=== PATIENT | male | born 1930 | race Caucasian/White ===

== ENCOUNTER → 2016-08-09 | Outpatient (CLI) | payer MEDICARE ==
[2016-08-09 08:26] LABS: CH 32.5; CHCM 32.8; HDW 2.54; HGB 15.2 gm/dL (13.0-17.5); MCH 32.1 pg (25.0-35.0); MCHC 32.2 g/dL (31.0-37.0); MCV 99.6 fL (80.0-100.0); Macrocytosis Slight; Mean Platelet Volume 7.3; RBC 4.72 m/uL (4.30-5.90); RDW 14.7 % (11.5-15.5); WBC 7.9 k/uL (3.8-10.6)
--- NOTE | 2016-08-09 08:29 | XR ---
EXAMINATION TYPE: XR chest 2V DATE OF EXAM: 08/09/2016 COMPARISON: NONE INDICATION: Physical TECHNIQUE: Frontal and lateral views of the chest are obtained. FINDINGS: The heart size is normal. The pulmonary vasculature is normal. The lungs are clear. Spondylosis within the mid to lower thoracic spine. Some degenerative disc fuentes ges present in the lower thoracic spine. Surgical repair of the right shoulder is evident. IMPRESSION: 1. No acute pulmonary process.
[2016-08-09 08:31] LABS: ALT 37 U/L (21-72); AST 28 U/L (17-59); Alkaline Phosphatase 51 U/L (38-126); Anion Gap 7 mmol/L; Blood Urea Nitrogen 18 mg/dL (9-20); Calcium 9.3 mg/dL (8.4-10.2); Carbon Dioxide 26 mmol/L (22-30); Chloride 109 mmol/L (98-107); Cholesterol 194 mg/dL (<200); Glucose 96 mg/dL (74-99); Non-African American GFR(MDRD) >60 (>60 ml/min/1.73 sqM); Potassium 4.5 mmol/L (3.5-5.1); Sodium 142 mmol/L (137-145); Total Bilirubin 0.8 mg/dL (0.2-1.3); Total Protein 6.7 g/dL (6.3-8.2); Triglycerides 64 mg/dL (<150)
[2016-08-09 08:40] LABS: Appearance,Urine Clear (Clear); Bilirubin,Urine Negative (Negative); Glucose,Urine (UA) Negative (Negative); Ketones,Urine Negative (Negative); Leukocyte Esterase,Urine Trace (Negative); Mucus,Urine Moderate /hpf; Nitrite,Urine Negative (Negative); PH, Urine 5.5 (5.0-8.0); Particle Count 5229; Protein,Urine Negative (Negative); Specific Gravity,Urine 1.014 (1.001-1.035); UA Billing (MACRO vs. MICRO) MICRO; Urobilinogen,Urine <2.0 mg/dL (<2.0); WBC,Urine 2 /hpf (0-5)
[2016-08-09 10:50] LABS: HDL Cholesterol 59 mg/dL (40-60)
== END | disposition home or self-care (01) ==
LOC: LABWHC1 07:40
PROVIDERS: ATTEND Internal Medicine
DX: I11.9 Hypertensive heart disease without heart failure (principal); M19.90 Unspecified osteoarthritis, unspecified site; K21.0 Gastro-esophageal reflux disease with esophagitis; R53.82 Chronic fatigue, unspecified; E55.9 Vitamin D deficiency, unspecified; Z00.01 Encounter for general adult medical examination with abnormal findings
CPT/HCPCS: 36415; 71020; 80053; 80061; 81001; 82272; 82306; 84439; 84443; 85027

== ENCOUNTER → 2016-09-20 | Outpatient (CLI) | payer MEDICARE ==
[2016-09-20 15:34] VITALS: BP 142/86; PULSE 97; RESP 16
--- NOTE | 2016-09-20 15:38 | P.PN ---
Progress Note - Text Patient returns for followup for chronic back pain with radiation to both lower extremities. Patient last underwent bilateral SIJ injection in November 2015, which provided good relief until approximately two months ago. Patient continues on rare tramadol medications for pain with good relief. Patient denies adverse drug effects from medications. Today, pt denies new-onset weakness, bowel/bladder incontinence, or any other signs or symptoms of cauda equina syndrome. There are no signs of acute intoxication, and no indications of medication diversion or overuse. In addition to above, 13-point review of systems is also negative for chest pain , shortness of breath, changes in vision, changes in hearing, new onset weakness , abdominal pain, diarrhea, extreme fatigue, malaise, fever, skin changes, homicidal or suicidal ideation, or bowel or bladder incontinence. Vital Signs: Reviewed in EMR Gen: WDWN, AAOx3, NAD HEENT: NCAT, EOMI, hearing grossly normal Pulm: resp unlabored Abd: soft, NT, ND Neck: supple, trachea midline ROM in flexion lumbar spine: reduced ROM in extension lumbar spine: reduced Lumbar paravertebral tenderness: + Facet loading: + bilateral SI joint tenderness: + bilateral Alex's test: + bilateral Straight leg raise: neg Neuro: CN II-XII grossly intact, muscle strength lower extremities PRESERVED Imaging: Reviewed in paper chart Assessment: 1. lumbar radic 2. lumbar neural foraminal stenosis 3. chronic pain syndrome Plan: 1. Explanation: Opioid and psychological risk scores were reviewed. Diagnoses , prognoses, and multiple treatment options including but not limited to physical therapy, interventional therapies, adjuvant medical therapies, narcotic medication therapies, and surgery were discussed with the patient and all questions were answered to the patient's satisfaction. 2. Opioid agreement: no opioids prescribed today 3. Counseling: The patient was counseled extensively on BODY MASS INDEX, EXERCISE. Specifically, the patient was instructed regarding the importance of smoking cessation, weight control, and exercise in the context of both chronic pain and overall health. 4. Procedures: LESI x 2 5. Consultations: None 6. Investigations: None 7. Medications: none prescribed 8. Disposition: f/u for procedure as scheduled
== END ==
LOC: PNWHC3 14:12
PROVIDERS: ATTEND Anesthesiology
DX: M99.73 Connective tissue and disc stenosis of intervertebral foramina of lumbar region (principal)
CPT/HCPCS: 99211

== ENCOUNTER 2016-10-03 06:23 | Day surgery (SDC) | payer MEDICARE ==
[2016-09-22 14:16] VITALS: BMI 24.3
[~2016-10-03 06:23] MED LIST: LACTATED RINGERS 1,000 ML IV ONE; LACTATED RINGERS 1,000 ML IV SCH
[2016-10-03] MEDS ORDERED: LIDOCAINE 1% 20 ML VIAL (10MG/ML) FOR IV START INTRADERMA ONE (06:31)
[2016-10-03 06:36] VITALS: TEMP 95
--- NOTE | 2016-10-03 07:28 | P.PCN ---
Date of Procedure: 10/03/16 Preoperative Diagnosis: Lumbar radiculopathy Lumbar stenosis Lumbar degenerative disc disease Postoperative Diagnosis: Same as above Procedure(s) Performed: Lumbar epidural steroid injection under fluoroscopic guidance in the interlaminar approach at the L4-L5 level on the left paramedian approach. Implants: Anesthesia: other (Moderate conscious sedation with IV fentanyl and Versed) Surgeon: Saundra Flores Pathology: none sent Condition: stable Disposition: PACU Indications for Procedure: Operative Findings: Description of Procedure: The patient was seen in preop holding area consent was obtained then he was brought into the procedure and placed in prone position. The skin was prepped with Betadine 3 and draped in a sterile manner. Lidocaine 1% was used to numb the skin up at the target point that was at the L4-5 level on the left paramedian approach. I used 20-gauge 3-1/2 inch Touhy epidural needle with loss -of-resistance to air to identify the epidural space. There was positive loss- of-resistance to air at about 6.5 cm from skin, negative aspiration for any CSF or blood, negative paresthesia. I then injected 1 mL of Omnipaque which showed typical epidurogram with AP and lateral views of fluoroscopy. After that I injected 80 mg of Kenalog +2 MLS of Marcaine 0.25% +3 MLS of preservative free normal saline to a total volume of 7 mls in the epidural space. Patient tolerated procedure well.
[2016-10-03 07:40] VITALS: RESP 18
--- NOTE | 2016-10-03 07:54 | FL ---
EXAMINATION TYPE: FL guided pain mgmt statistic DATE OF EXAM: 10/03/2016 HISTORY: Flouroscopy time 7 seconds of fluoroscopy provided. IMPRESSION: 1. Fluoroscopy time.
[2016-10-03] MEDS ORDERED: IV FLUID CONTINUATION 1,000 ML IV ONE (08:00)
[2016-10-03 08:12] VITALS: BP 137/76; PULSE 73
== END 2016-10-03 08:15 | disposition home or self-care (01) ==
LOC: ORPAIN 06:23
PROVIDERS: ATTEND Anesthesiology
DX: G89.4 Chronic pain syndrome (principal); M51.16 Intervertebral disc disorders with radiculopathy, lumbar region; M48.06 Spinal stenosis, lumbar region; I10 Essential (primary) hypertension; Z88.2 Allergy status to sulfonamides
CPT/HCPCS: 62323; 99152; J2250; J3301; Q9965; J3010

== ENCOUNTER 2016-10-31 06:29 | Day surgery (SDC) | payer MEDICARE ==
[2016-10-26 09:14] VITALS: BMI 24.7
[~2016-10-31 06:29] MED LIST changes: -LACTATED RINGERS 1,000 ML IV ONE
[2016-10-31 06:53] VITALS: TEMP 97.8
[2016-10-31] MEDS ORDERED: LIDOCAINE 1% 20 ML VIAL (10MG/ML) FOR IV START INTRADERMA ONE (07:07)
--- NOTE | 2016-10-31 07:32 | P.PCN ---
Date of Procedure: 10/31/16 Preoperative Diagnosis: Lumbar stenosis Lumbar Degenerative disc disease Postoperative Diagnosis: As above Procedure(s) Performed: Lumbar epidural steroid injection under fluoroscopic guidance Implants: Anesthesia: other (Concsious sedation with IV fentanyl and Versed) Surgeon: Saundra Flores Pathology: none sent Condition: stable Disposition: PACU Indications for Procedure: Operative Findings: Description of Procedure: The patient was seen in preop holding area consent was obtained then he was brought into the procedure and placed in prone position. skin was prepped with Betadine 3 and draped in a sterile manner. Lidocaine 1% was used to numb the skin up at the target point that was at the L4-5 level on the left paramedian approach. I used 20-gauge 3-1/2 inch Touhy epidural needle with loss -of-resistance to air to identify the epidural space. There was positive loss- of-resistance to air at about 6.5 cm from skin, negative aspiration for any CSF or blood, negative paresthesia. I then injected 1 mL of Omnipaque which showed typical epidurogram with AP and lateral views of fluoroscopy. After that I injected 40 mg of Kenalog +2 MLS of Marcaine 0.25% +3 MLS of preservative free normal saline to a total volume of 7 mls in the epidural space. Patient tolerated procedure well.
[2016-10-31 08:08] VITALS: BP 119/72; PULSE 70; RESP 20
[2016-10-31] MEDS ORDERED: IV FLUID CONTINUATION 1,000 ML IV ONE (08:09)
--- NOTE | 2016-10-31 08:23 | FL ---
Fluoroscopy INDICATION: Pain FINDINGS: Fluoroscopy time: 5 seconds. Images obtained: 1. IMPRESSIONS: 1. Documentation of fluoroscopy.
== END 2016-10-31 08:20 | disposition home or self-care (01) ==
LOC: ORPAIN 06:29
PROVIDERS: ATTEND Anesthesiology
DX: M51.36 Other intervertebral disc degeneration, lumbar region (principal); M48.06 Spinal stenosis, lumbar region; Z88.2 Allergy status to sulfonamides; Z79.82 Long term (current) use of aspirin
CPT/HCPCS: 62323; 99152; J2250; J3301; Q9965; J3010

== ENCOUNTER → 2016-11-16 | Outpatient (CLI) | payer MEDICARE ==
[2016-11-16 13:55] VITALS: BP 146/69; PULSE 51; RESP 16; TEMP 98.1
--- NOTE | 2016-11-16 14:10 | P.PN ---
Progress Note - Text This is a 6-year-old male with history of severe lumbar stenosis at L3 4 level with pain that goes across his lower back at the lumbosacral junction and also down his left leg to the left knee level with occasional numbness and tingling in the left thigh. The patient had to interlaminar lumbar epidural steroid injection lately which gave him only 1-2 weeks of pain relief. Most of the patient's pain is when he walks around.He uses tramadol occasionally for his pain. I will schedule the patient to have transforaminal epidural steroid injection at the L3 4 level on the left side under fluoroscopic guidance to see if this would give him better pain relief than the interlaminar approach for his last epidural steroid injections. The procedure was explained to the patient and his questions were answered.
== END | disposition home or self-care (01) ==
LOC: PNWHC3 13:35
PROVIDERS: ATTEND Anesthesiology
DX: M54.5 Low back pain (principal)
CPT/HCPCS: 99211

== ENCOUNTER 2016-12-11 09:15 | Day surgery (SDC) | payer MEDICARE ==
[2016-12-05 14:38] VITALS: BMI 24.3
[2016-12-11 08:59] VITALS: TEMP 97.5
[~2016-12-11 09:15] MED LIST changes: +LIDOCAINE 1% 20 ML VIAL (10MG/ML) FOR IV START INTRADERMA ONE
--- NOTE | 2016-12-11 09:22 | P.PCN ---
Date of Procedure: 12/11/16 Surgeon: Valentin Wesley Pathology: none sent Condition: stable Disposition: PACU Description of Procedure: PREOPERATIVE DIAGNOSIS: 1-Lumbar radiculitis POSTOPERATIVE DIAGNOSIS: 1-Lumbar radiculitis PROCEDURE: 1. Transforaminal epidural steroid injection under fluoroscopic guidance at left L3-L4 level. 2. Lumbar epidurogram. ANESTHESIA: Conscious sedation. EBL: Minimal PROCEDURE INDICATION: The patient with low back and leg pain that has been unresponsive to conservative management. No use of blood thinners. PROCEDURE DESCRIPTION / TECHNIQUE: The patient was seen and identified in the preoperative area. Risks, benefits, complications, and alternatives were discussed with the patient, including but not limited to bleeding, infection, nerve damage, allergic reactions to medications, and incomplete pain relief. The patient agreed to proceed with the procedure and signed the consent after all questions were answered. IV was started, and vital signs were stable. Patient was taken to the OR and time out was completed to confirm patient position, procedure, laterality of pain, and allergies. The patient was placed in the prone position on procedure table and a pillow was placed under the abdomen to reduce lumbar lordosis. The lumbosacral area was prepped and draped in the usual sterile fashion. Critical pause was taken. Vital signs were closely monitored during the procedure. Conscious sedation was used during the procedure to decrease patients anxiety. Using oblique fluoroscopy, the chins of the Braden dog at left L3 and L4 level were identified. After localization, a 22-gauge 3.5-inch spinal needle was advanced under a tunneled view fluoroscopic guidance just underneath the chin of the Braden dog at the left L3 vertebrae. Under lateral fluoroscopy, the needle was then advanced to the posterior border of the interforaminal spaces at this level. After negative aspiration of CSF and blood and with no paresthesias, 0.5 mL ofomnipaque-300 contrast dye was injected demonstrating excellent epidurogram and outlining the nerve root. Subsequently, after repeat negative aspiration and confirmation of the epidurogram in the AP view, 3 mL of 3 ml block solution containing 20 mg of dexamethasone and 1 mL of PF 1% lidocaine was injected. At the end of the procedure, needle was removed intact , skin was cleansed, and bandages were applied. COMPLICATIONS: None DISPOSITION / PLANS: The patient was placed in a supine position and transferred to the recovery area in a stable condition for observation. There was no evidence of lower extremity motor or sensory deficit after the procedure. Patient was discharged from the recovery room after meeting discharge criteria. Home discharge instructions were given to the patient by the staff. The patient was reexamined prior to discharge and there were no issues. The patient will schedule a follow up in the clinic in 4-6 weeks.
[2016-12-11] MEDS ORDERED: IV FLUID CONTINUATION 1,000 ML IV ONE (09:46)
--- NOTE | 2016-12-11 09:46 | FL ---
EXAMINATION TYPE: FL guided pain mgmt statistic DATE OF EXAM: 12/11/2016 COMPARISON: NONE HISTORY: Back pain TECHNIQUE: Fluoroscopy. FINDINGS/IMPRESSION: Fluoroscopic guidance was provided during procedure performed by Dr. Wesley. A total of 10 seconds of fluoroscopic time was utilized during the procedure and 3 spot images was acqu ired.
[2016-12-11 09:50] VITALS: RESP 18
[2016-12-11 10:06] VITALS: BP 129/75; PULSE 78
== END 2016-12-11 11:30 | disposition home or self-care (01) ==
LOC: ORPAIN 09:15
PROVIDERS: ATTEND Anesthesiology
DX: M54.16 Radiculopathy, lumbar region (principal); Z88.2 Allergy status to sulfonamides
CPT/HCPCS: 99152; 64483; J2250; J1100; Q9965; J3010

== ENCOUNTER → 2017-01-03 | Outpatient (CLI) | payer MEDICARE ==
[2017-01-03 13:13] VITALS: BP 160/74; PULSE 71; RESP 18; TEMP 98.4
--- NOTE | 2017-01-03 13:44 | P.PN ---
Subjective Progress Note Date: 01/03/17 This is follow-up visit for this patient with a history of severe and chronic low back pain secondary to lumbar degenerative disc diseases , lumbar spondylosis with facet arthropathy, And lumbar spinal stenosis , we have done interventional pain management injection, transforaminal epidural steroid injections , 1-Ultram 50 mg every 6 hours when necessary Patient denies any side effects of the medication, denies excessive drowsiness or sleepiness, denies suicidal ideation, and reports that the current pain medication is helping To control the pain and improve activity of daily living Patient denies any motor or sensory deficit , patient denies any fever or night sweats, denies any change in the bowel movements or urination Physical Examinations : 1-Constitutiona : Cooperative , not in acute distress . 2-HEENT : nech ; supple , no Lymphadenopathy , no Thyromegaly , normal thyroid size . eyes : no ptosis , no icterus, no photophobia . ENT : normal of hearing , normal oropharynx , no Thrush . 3- Respiratory : Chest clear to auscultations Bilaterally , no wheezing , no Rhonchi . 4- Cardiovascular : regular rate and rhythem , S1 , S2 , no S3 , no S4. 5- Gastrointestinal : abdomen soft no tenderness , bowel sounds positive all four quadrents , no organomegally . 6- Genitourinary : Defferred . 7- neurologic : Cranial nerve II to XII intact , no focal neurological deffecit . 8-psychatric : alert , oriented X 3 , appropriate affect , intact judgment and insight . 9-Lymphatic : no Lymphadenopathy . 10- musculoskeltal : Ambulate using cane exams of the Lumber spine = motor strength lower extremities ,thigh and legs .4/5 Straight-leg raising test positive bilaterally nick Test positive bilaterally. facet loading test positive bilaterally Assessment and plan = Chronic low back pain secondary to lumbar degenerative disc disease , lumbar spondylosis with facet arthropathy without myelopathy , lumbar spinal stenosis Patient should continue his current medication, and he will follow up with the pain clinic when he comes back from [place] - diagnoses, prognosis, and treatment options including but not limited to physical therapy, surgical interventions, interventional therapies , and medication management including narcotics and adjuvant medication were discussed with the patient and all the questions answered Objective - Vital Signs Vital signs: Vital Signs Temp 98.4 F 01/03/17 13:07 Pulse 71 01/03/17 13:07 Resp 18 01/03/17 13:07 BP 160/74 01/03/17 13:07 Pulse Ox 98 01/03/17 13:07 Intake & Output 01/02/17 01/03/17 01/03/17 18:59 06:59 18:59 Weight 74.843 kg
== END ==
LOC: PNWHC3 12:41
PROVIDERS: ATTEND Specialist
DX: M48.061 Spinal stenosis, lumbar region without neurogenic claudication (principal); M51.36 Other intervertebral disc degeneration, lumbar region; M47.816 Spondylosis without myelopathy or radiculopathy, lumbar region; M46.86 Other specified inflammatory spondylopathies, lumbar region; Z79.899 Other long term (current) drug therapy; Z79.891 Long term (current) use of opiate analgesic
CPT/HCPCS: 99211

== ENCOUNTER → 2017-08-03 | Outpatient (CLI) | payer MEDICARE ==
[2017-08-03 09:57] LABS: HCT 44.7 % (39.0-53.0); HGB 14.8 gm/dL (13.0-17.5); MCH 30.6 pg (25.0-35.0); MCHC 33.2 g/dL (31.0-37.0); Mean Platelet Volume 7.3; Platelet Count 222 k/uL (150-450); RBC 4.85 m/uL (4.30-5.90); RDW 14.7 % (11.5-15.5); WBC 7.3 k/uL (3.8-10.6)
[2017-08-03 10:16] LABS: Albumin 3.8 g/dL (3.5-5.0); Calcium 9.8 mg/dL (8.4-10.2); Total Bilirubin 0.7 mg/dL (0.2-1.3); Total Protein 6.8 g/dL (6.3-8.2)
[2017-08-03 10:29] LABS: T4, Free (Free Thyroxine) 1.16 ng/dL (0.78-2.19)
--- NOTE | 2017-08-03 10:31 | XR ---
EXAMINATION TYPE: XR chest 2V DATE OF EXAM: 08/03/2017 COMPARISON: 08/09/2016 INDICATION: Hypertensive heart disease, checkup TECHNIQUE: Frontal and lateral views of the chest are obtained. FINDINGS: The heart size is normal. The pulmonary vasculature is normal. The lungs are clear. IMPRESSION: 1. No acute pulmonary process.
[2017-08-03 10:43] LABS: Prostate Specific Antigen 12.5 ng/mL (0.00-4.00)
[2017-08-03 10:57] LABS: Potassium 4.9 mmol/L (3.5-5.1)
== END | disposition home or self-care (01) ==
LOC: LABWHC1 09:25
PROVIDERS: ATTEND Internal Medicine
DX: I11.9 Hypertensive heart disease without heart failure (principal); E78.2 Mixed hyperlipidemia; N40.1 Benign prostatic hyperplasia with lower urinary tract symptoms; K21.0 Gastro-esophageal reflux disease with esophagitis
CPT/HCPCS: 36415; 71046; 80053; 80061; 82272; 84153; 84439; 84443; 85027

== ENCOUNTER → 2017-11-23 | Outpatient (CLI) | payer MEDICARE ==
[2017-11-23 08:32] LABS: HCT 45.7 % (39.0-53.0); HGB 14.6 gm/dL (13.0-17.5); MCV 96.8 fL (80.0-100.0); Mean Platelet Volume 6.7; Platelet Count 245 k/uL (150-450); RBC 4.72 m/uL (4.30-5.90); RDW 14.1 % (11.5-15.5); WBC 7.5 k/uL (3.8-10.6)
[2017-11-23 08:58] LABS: Albumin 3.8 g/dL (3.5-5.0); Calcium 9.7 mg/dL (8.4-10.2); Potassium 4.4 mmol/L (3.5-5.1); Total Bilirubin 0.6 mg/dL (0.2-1.3); Total Protein 6.8 g/dL (6.3-8.2)
== END ==
LOC: LABWHC1 07:28
PROVIDERS: ATTEND Internal Medicine
DX: Z00.00 Encounter for general adult medical examination without abnormal findings (principal); I11.9 Hypertensive heart disease without heart failure; E78.2 Mixed hyperlipidemia
CPT/HCPCS: 36415; 80053; 80061; 85027

== ENCOUNTER → 2019-09-29 | Outpatient (CLI) | payer MEDICARE ==
[2019-09-29 09:44] LABS: Basophils % (A) 1 %; Eosinophils # (A) 0.3 k/uL (0-0.7); Eosinophils % (A) 5 %; HCT 46.8 % (39.0-53.0); HGB 14.8 gm/dL (13.0-17.5); Lymphocytes # (A) 2.2 k/uL (1.0-4.8); Lymphocytes % (A) 32 %; MCH 30.1 pg (25.0-35.0); MCHC 31.6 g/dL (31.0-37.0); MCV 95.3 fL (80.0-100.0); Mean Platelet Volume 7.2; Monocytes # (A) 0.3 k/uL (0-1.0); Monocytes % (A) 5 %; Neutrophils # (A) 3.8 k/uL (1.3-7.7); Neutrophils % (A) 56 %; Platelet Count 187 k/uL (150-450); RBC 4.91 m/uL (4.30-5.90); RDW 15.3 % (11.5-15.5); WBC 6.8 k/uL (3.8-10.6)
[2019-09-29 17:20] LABS: African American GFR (CKD) 91.8 (60.0-200.0); Albumin 3.8 g/dL (3.80-4.90); Albumin/Globulin Ratio 1.65 (1.60-3.17); Anion Gap 4.2 mmol/L (4.00-12.00); BUN/Creat Ratio 33.75 Ratio (12.00-20.00); Calcium 9.2 mg/dL (8.7-10.3); Carbon Dioxide 27.8 mmol/L (21.6-31.8); Chol/HDL Ratio 2.71; Globulin 2.3 g/dL (1.6-3.3); LDL Cholesterol,Calculated 95.8 mg/dL (0.0-131.0); Magnesium 1.7 mg/dL (1.5-2.4); Non-African American GFR(CKD) 79.2 (60.0-200.0); Phosphorus 2.9 mg/dL (2.4-5.1); Potassium 4.4 mmol/L (3.5-5.5); Total Bilirubin 0.5 mg/dL (0.3-1.2); Total Protein 6.1 g/dL (6.2-8.2); Uric Acid 7.7 mg/dL (3.7-8.7); VLDL Calculation 10.2 mg/dL (5.00-40.00)
[2019-09-29 17:37] LABS: Erythrocyte Sedimentation Rate 4 mm/Hr (0-20)
[2019-09-29 17:50] LABS: Prostate Specific Antigen 20.7 ng/mL (0.0-6.5)
== END | disposition home or self-care (01) ==
LOC: LABWHC1 07:49
PROVIDERS: ATTEND Internal Medicine
DX: M10.9 Gout, unspecified (principal); E78.5 Hyperlipidemia, unspecified; N20.0 Calculus of kidney; I10 Essential (primary) hypertension; D64.9 Anemia, unspecified; N40.0 Benign prostatic hyperplasia without lower urinary tract symptoms
CPT/HCPCS: 36415; 80053; 80061; 82550; 83735; 84100; 84153; 84550; 85025; 85652

== ENCOUNTER → 2019-10-28 | Outpatient (CLI) | payer MEDICARE | END | disposition home or self-care (01) | LOC: LABWHC1 07:48 | PROVIDERS: ATTEND Urology | DX: R97.20 Elevated prostate specific antigen [PSA] (principal) | CPT/HCPCS: 36415; 84153 ==